=== PATIENT | male | born 1970 | race Caucasian/White ===

== ENCOUNTER 2016-11-20 05:21 | Emergency (ER) | payer OTHER ==
[~2016-11-20] VITALS: Ht 180.3 cm; Wt 90.9 kg
[~2016-11-20 05:21] MED LIST: ALBU2.5V NPPB; ALBU90AE INH; ALPR0.254 PO; CETI-158 PO; DOXY100T PO; FAMO20TA7 PO; FLUT1DIS3 INH; PRED20TA PO; TAMS-11 PO
[2016-11-20] MEDS ORDERED: OXYcodone/APAP 5/325MG TABLET ONE (05:58)
[2016-11-20] MEDS ORDERED: KETOROLAC 30 MG/1 ML ONE ×2 (05:58→06:00)
[2016-11-20] MEDS ORDERED: KETOROLAC 30 MG/1 ML IM ONE (06:00)
[2016-11-20] MEDS ORDERED: OXYcodone/APAP 5/325MG TABLET PO ONE (06:00)
[2016-11-20 07:58] VITALS: BP 117/81
== END 2016-11-20 08:00 | disposition home or self-care (01) ==
LOC: ED 05:53
DX: M25.562 Pain in left knee (principal)
CPT/HCPCS: 29505; 36415; 73564; 84550; 85025; 96372; 99285; J1885

== ENCOUNTER → 2021-01-18 | Outpatient (CLI) | payer OTHER | END | disposition home or self-care (01) | LOC: CFH 11:04 | PROVIDERS: ATTEND Internal Medicine | DX: J84.10 Pulmonary fibrosis, unspecified (principal); J45.40 Moderate persistent asthma, uncomplicated; J98.4 Other disorders of lung ==